=== PATIENT | female | born 1990 | race Caucasian/White ===

== ENCOUNTER 2016-08-25 14:45 | Observation (INO) | payer OTHER ==
[2016-08-19 18:04] VITALS: BP 115/58
[~2016-08-25 14:45] MED LIST: HYDR50CA PO; IBUP-1060 PO; NIFE10CA48 PO; ONDA8TAB12 PO; PNV1TABL25 PO
[2016-08-25] MEDS ORDERED: IV RINGERS,LACTATED 1000ML 1,000 ML IV SCH (17:21)
== END 2016-08-25 17:24 | disposition home or self-care (01) ==
LOC: 3 SO LND 14:45
PROVIDERS: ADMIT Obstetrics & Gynecology; ATTEND Obstetrics & Gynecology
DX: O62.9 Abnormality of forces of labor, unspecified (principal); O46.93 Antepartum hemorrhage, unspecified, third trimester; Z3A.35 35 weeks gestation of pregnancy
CPT/HCPCS: G0378; G0379

== ENCOUNTER 2016-09-07 20:16 | Emergency (ER) | payer OTHER ==
[~2016-09-07] VITALS: Ht 162.6 cm; Wt 73.0 kg
[2016-09-07] MEDS ORDERED: ACETAMINOPHEN 325 MG TABLET. PO ONE (21:00)
[2016-09-07] MEDS ORDERED: AMOX500C PO (21:15)
[2016-09-07] MEDS ORDERED: ERYT1OIN6 OP (21:15)
--- NOTE | 2016-09-07 21:15 | PHYS DOC ---
Past Medical History Past Medical History: No Pertinent History Additional Past Medical Histor: Ovarian Cyst Past Surgical History: No Surgical History Alcohol Use: None Drug Use: None Adult General Chief Complaint Chief Complaint: MULTIPLE COMPLAINTS HPI HPI Patient is a 26 year old female presents to the emergency department stating that she is 36-37 weeks . She is complaining of left lower and upper dental pain and discomfort. Just complaining of left ear pain and discomfort. She is also complaining of bilateral eye drainage is been yellow and white color. Patient denies any fever, chills or any nausea or vomiting. Review of Systems Review of Systems Constitutional: Denies fever or chills [] Eyes: Denies change in visual acuity, redness, or eye pain. Patient complaint of bilateral eye discharge and drainage HENT: Denies nasal congestion or sore throat. Complaint of left ear pain as well as left upper and lower dental pain and discomfort. Respiratory: Denies cough or shortness of breath [] Cardiovascular: No additional information not addressed in HPI [] GI: Denies abdominal pain, nausea, vomiting, bloody stools or diarrhea [] : Denies dysuria or hematuria [] Musculoskeletal: Denies back pain or joint pain [] Integument: Denies rash or skin lesions [] Neurologic: Denies headache, focal weakness or sensory changes [] Endocrine: Denies polyuria or polydipsia [] Current Medications Current Medications Current Medications Medications (Trade) Dose Ordered Sig/[facility] Start Time Stop Time Status Last Admin Dose Admin Acetaminophen (Tylenol) 650 mg 1X ONCE 09/07/16 21:00 09/07/16 21:01 DC 09/07/16 21:05 650 MG Allergies Allergies Allergies Coded Allergies Type Severity Reaction Last Updated Verified coconut oil Allergy Intermediate 03/30/15 Yes latex Allergy Intermediate 03/30/15 Yes Physical Exam Physical Exam Constitutional: Well developed, well nourished, no acute distress, non-toxic appearance. [] HENT: Normocephalic, atraumatic, bilateral external ears normal, oropharynx moist, no oral exudates, nose normal. Bilateral tympanic membranes appear to be normal. Patient with dental tenderness noted on the left and upper and lower area. The areas appear to be red and inflamed. No drainage or discharge noted from the area Eyes: PERRLA, EOMI, conjunctiva normal, no discharge. [] Neck: Normal range of motion, no tenderness, supple, no stridor. [] Cardiovascular:Heart rate regular rhythm, no murmur [] Lungs & Thorax: Bilateral breath sounds clear to auscultation [] Skin: Warm, dry, no erythema, no rash. [] Back: No tenderness Extremities: No tenderness, no cyanosis, no clubbing, ROM intact, no edema. [] Neurologic: Alert and oriented X 3, normal motor function, normal sensory function, no focal deficits noted. [] Psychologic: Affect normal, judgement normal, mood normal. [] Current Patient Data Vital Signs Vital Signs Date Time Temp Pulse Resp B/P (MAP) Pulse Ox O2 Delivery O2 Flow Rate FiO2 09/07/16 20:33 97.8 89 16 96 Room Air 97.8 EKG EKG [] Radiology/Procedures Radiology/Procedures [] Course & Med Decision Making Course & Med Decision Making Pertinent Labs and Imaging studies reviewed. (See chart for details) Patient is instructed to use Tylenol for pain and discomfort. She'll also be provided with amoxicillin. Also instructed patient to use eyedrops such as erythromycin to help with bilateral conjunctivitis. Recommended plenty of fluids. Patient was provided with signs and symptoms to return back to emergency department. Patient will be discharged home in stable condition. [] Dragon Disclaimer Dragon Disclaimer This electronic medical record was generated, in whole or in part, using a voice recognition dictation system. Departure Departure Impression: Primary Impression: Dental abscess Additional Impressions: Otalgia of left ear Conjunctivitis Disposition: 01 HOME, SELF-CARE Condition: STABLE Referrals: NO PCP (PCP) Patient Instructions: Bacterial Conjunctivitis, [id number], Dental Abscess, Otalgia-Brief Additional Instructions: You have been evaluated for your dental pain, left ear pain, and bilateral eye drainage and discharge. Your ear pain as secondary to your dental pain as this is radiation of pain. Tylenol for pain and discomfort. Antibiotics as prescribed. Eyedrops as prescribed for conjunctivitis. Follow-up to primary care physician/LEGAL BILLER within the next 3-5 days. Return back to emergency prior signs and symptoms of become worse. Scripts Erythromycin Base (Erythromycin) 1 Gm Oint...g. 1 CM OP 6XDAY for 7 Days, [facility] Prov: ROSELYN SALTERElizabeth Clemente QUALITATIVE RESEARCHER 09/07/16 Amoxicillin (AMOXICILLIN) 500 Mg Capsule 1 CAP PO QID, #40 CAP Prov: DIONNE SALTER APRN 09/07/16 Problem Qualifiers DIONNE SALTER APRN Sep 07, 2016 21:15
[2016-09-07 21:23] VITALS: BP 123/75
== END 2016-09-07 21:25 | disposition home or self-care (01) ==
LOC: ER 20:16
DX: O26.893 Other specified pregnancy related conditions, third trimester (principal); K04.7 Periapical abscess without sinus; H10.9 Unspecified conjunctivitis; H92.02 Otalgia, left ear; Z91.040 Latex allergy status; Z91.018 Allergy to other foods; Z3A.37 37 weeks gestation of pregnancy
CPT/HCPCS: 81025; 99283

== ENCOUNTER 2018-10-22 16:24 | Emergency (ER) | payer MEDICAID, OTHER ==
[~2018-10-22] VITALS: Ht 160 cm; Wt 75.7 kg
[~2018-10-22 16:24] MED LIST changes: +AMOX500C PO; +ERYT1OIN6 OP; +OXYC1TAB15 PO
[2018-10-22 16:35] VITALS: BP 125/73
--- NOTE | 2018-10-22 17:31 | PHYS DOC ---
Past Medical History Past Medical History: No Pertinent History Additional Past Medical Histor: Ovarian Cyst Past Surgical History: Tubal ligation Alcohol Use: None Drug Use: None Adult General Chief Complaint Chief Complaint: VAGINAL PROBLEM HPI HPI Patient is a 28 year old female who presents to the ER, accompanied by her , with complaints of vaginal pain for the last 2 years. Pt states at first she had pain with intercourse but lately she has vaginal pain all of the time. She denies any irregular vaginal discharge, bleeding, or odor. She denies any dysuria, hematuria, increased urinary frequency, or incontinence. She rates the pain a 5/10 on the pain scale, there are no alleviating factors. Pt states she is worried that something is wrong because after her last child , over 2 years ago, she was told to follow up with Dr. Mejia the next day and never went back to see him. Review of Systems Review of Systems Constitutional: Denies fever or chills [] HENT: Denies nasal congestion or sore throat [] Respiratory: Denies cough or shortness of breath [] Cardiovascular: No additional information not addressed in HPI [] GI: Denies abdominal pain, nausea, vomiting, bloody stools or diarrhea; reports chronic constipation [] : Denies dysuria or hematuria; see HPI] Musculoskeletal: Denies joint pain; reports chronic low back pain, denies any changes Integument: Denies rash or skin lesions [] Neurologic: Denies headache, focal weakness or sensory changes [] Complete systems were reviewed and found to be within normal limits, except as documented in this note. Allergies Allergies Allergies Coded Allergies Type Severity Reaction Last Updated Verified coconut oil Allergy Intermediate 03/30/15 Yes latex Allergy Intermediate 03/30/15 Yes Physical Exam Physical Exam Constitutional: Well developed, well nourished, no acute distress, non-toxic appearance. [] HENT: Normocephalic, atraumatic, bilateral external ears normal, nose normal. [] Eyes: conjunctiva normal, no discharge. [] Neck: Normal range of motion, no stridor. [] Cardiovascular:Heart rate regular rhythm, Lungs & Thorax: Respirations even and unlabored, no retractions, no respiratory distress Abdomen: Bowel sounds normal, soft, LLQ guarding, no rebound tenderness, no masses, no pulsatile masses. [] Skin: Warm, dry, no erythema, no rash. [] Back: No CVA tenderness. [] Extremities: No cyanosis, ROM intact, no edema. [] Neurologic: Alert and oriented X 3, no focal deficits noted. [] Psychologic: Affect normal, judgement normal, mood normal. [] Current Patient Data Vital Signs Vital Signs Date Time Temp Pulse Resp B/P (MAP) Pulse Ox O2 Delivery O2 Flow Rate FiO2 10/22/18 16:35 97.4 92 14 125/73 (90) 95 Room Air 97.4 EKG EKG [] Radiology/Procedures Radiology/Procedures PROCEDURE: TRANSVAGINAL Transvaginal pelvic ultrasound 10/22/2018 CLINICAL HISTORY: Chronic vaginal pain. Left pelvic tenderness. TECHNIQUE: A transvaginal pelvic ultrasound study was performed. Multiple images were obtained. FINDINGS: The uterus is within normal limits in size and echogenicity. It measures 9.7 x 4.9 x 4.5 cm in longitudinal, transverse, and AP dimensions. The endometrial echo complex measures 6 mm in thickness which is within normal limits. No focal abnormality of the uterus is seen. A 1.3 cm nabothian cyst is seen within the cervix. Both ovaries are within normal limits size and echogenicity. The right ovary measures 3.4 x 2.4 x 1.9 cm in size. The left ovary measures 2.2 x 2.8 x 1.7 cm in size. No adnexal mass is seen. Normal color-flow and pulse Doppler imaging to both ovaries is noted. No free fluid is seen. IMPRESSION: Negative study.[] Course & Med Decision Making Course & Med Decision Making Pertinent Labs and Imaging studies reviewed. (See chart for details) Discussed pt with Dr. Gonzales who recommends that patient follow up with Dr. Mejia concerning chronic vaginal pain. Ultrasound was negative for any acute findings. [id number] Mejia who recommends that this patient follow up in the office for further evaluation of chronic vaginal pain. Patient verbalized an understanding of home care, medications, follow-up, and return to ED instructions and was in agreement with the plan of care. [] Dragon Disclaimer Dragon Disclaimer This electronic medical record was generated, in whole or in part, using a voice recognition dictation system. Departure Departure Impression: Primary Impression: Vaginal pain Disposition: HOME, SELF-CARE Condition: STABLE Referrals: TOMASZ MEJIA Jr, MD Additional Instructions: Follow up with Dr. Mejia for further evaluation of your vaginal pain. The ultrasound today showed no acute findings. ISATU LE AUTOMOBILE WRECKER Oct 22, 2018 17:30
--- NOTE | 2018-10-22 19:03 | RAD ---
Transvaginal pelvic ultrasound 10/22/2018 CLINICAL HISTORY: Chronic vaginal pain. Left pelvic tenderness. TECHNIQUE: A transvaginal pelvic ultrasound study was performed. Multiple images were obtained. FINDINGS: The uterus is within normal limits in size and echogenicity. It measures 9.7 x 4.9 x 4.5 cm in longitudinal, transverse, and AP dimensions. The endometrial echo complex measures 6 mm in thickness which is within normal limits. No focal abnormality of the uterus is seen. A 1.3 cm nabothian cyst is seen within the cervix. Both ovaries are within normal limits size and echogenicity. The right ovary measures 3.4 x 2.4 x 1.9 cm in size. The left ovary measures 2.2 x 2.8 x 1.7 cm in size. No adnexal mass is seen. Normal color-flow and pulse Doppler imaging to both ovaries is noted. No free fluid is seen. IMPRESSION: Negative study. Electronically signed by: Zhao Echevarria MD (10/22/2018 7:00 PM) [facility]
== END 2018-10-22 19:32 | disposition home or self-care (01) ==
LOC: ER 16:24
DX: R10.2 Pelvic and perineal pain (principal); G89.29 Other chronic pain; Z98.51 Tubal ligation status; Z91.040 Latex allergy status; Z88.8 Allergy status to other drugs, medicaments and biological substances
CPT/HCPCS: 76830; 99284

== ENCOUNTER → 2020-11-07 | Outpatient (CLI) | payer MEDICAID ==
--- NOTE | 2020-11-07 13:43 | RAD ---
EXAM: Pelvic sonogram. HISTORY: Right ovarian cyst. TECHNIQUE: Transabdominal and transvaginal sonographic imaging of the pelvis was performed. COMPARISON: 10/22/2018. FINDINGS: The uterus measures 8.2 x 5.3 x 4.1 cm. The endometrial stripe measures 4.3 mm in thickness . The ovaries are normal in size and demonstrate normal blood flow. There are small bilateral ovarian follicles. There is trace pelvic free fluid. IMPRESSION: 1. No evidence of an ovarian cyst. There are physiologic ovarian follicles. 2. Trace pelvic free fluid, within physiologic limits. Electronically signed by: Ladi Casas MD (11/07/2020 1:40 PM) [id number]
== END ==
LOC: US 12:05
PROVIDERS: ATTEND Obstetrics & Gynecology
DX: N83.201 Unspecified ovarian cyst, right side (principal)
CPT/HCPCS: 76830; 76856

== ENCOUNTER → 2021-03-09 | Outpatient (CLI) | payer MEDICAID ==
[~2021-03-09] MED LIST changes: +IOHEXOL 300 MG/ML 50 ML VIAL. INT UTERIN ONE
[2021-03-09 12:23] LABS: PREG TEST PT QUAL NEGATIVE (NEG)
== END ==
LOC: RAD 11:23
PROVIDERS: ATTEND Obstetrics & Gynecology
DX: N93.9 Abnormal uterine and vaginal bleeding, unspecified (principal)
CPT/HCPCS: 84703

== ENCOUNTER → 2021-04-28 | Outpatient (CLI) | payer MEDICAID ==
[~2021-04-28] MED LIST changes: +CONTRAST GIVEN. MC PRN; +IOHEXOL 300 MG/ML 100ML VIAL. INT CAT ONE; -IOHEXOL 300 MG/ML 50 ML VIAL. INT UTERIN ONE
--- NOTE | 2021-04-28 15:34 | RAD ---
EXAM: Hysterosalpingogram. HISTORY: Displaced fallopian tube closure device. TECHNIQUE: The risks of the procedure were discussed with the patient and written and verbal consent was obtained. A negative serum (chest was obtained. A timeout was performed. A vaginal speculum was i nserted and the cervix was identified and cleansed with Betadine. A balloon tip catheter was advanced into the uterine cavity and the balloon was inflated. Fluoroscopic imaging of the pelvis was perform ed with the patient in neutral prone and bilateral oblique positions. A total of 8 fluoroscopic image s were obtained for a fluoroscopy time of 1.4 minutes. COMPARISON: Pelvic sonogram dated 11/07/2020. FINDINGS: The raw hide trimmer image of the pelvis demonstrates a right-sided fallopian tube closure device over lying expected position. The left clipping tube closure device was previously identified within the l eft upper abdomen. The images obtained during the administration of contrast demonstrate a normal igiugig rine configuration. There is contrast opacification of the proximal aspects of both fallopian tubes. There is suggestion of a filling defect within the left uterine horn. However, this is not seen on al l images and is likely artifactual. There is no spillage of contrast into the pelvis. IMPRESSION: 1. Displaced left fallopian tube closure device, excluded from the [id number]. There is a right fa llopian tube closure device overlying expected position. 2. Contrast opacification of the proximal aspects of both fallopian tubes. The distal aspects of the fallopian tubes are not opacified and there is no spillage of contrast into the peritoneal cavity. Th is favors that both tubes are occluded distally. Electronically signed by: Ladi Casas MD (04/28/2021 3:31 PM) [id number]
== END | disposition home or self-care (01) ==
LOC: RAD 13:24
PROVIDERS: ATTEND Obstetrics & Gynecology
DX: N83.4 Prolapse and hernia of ovary and fallopian tube (principal); F17.210 Nicotine dependence, cigarettes, uncomplicated; Z79.899 Other long term (current) drug therapy; Z98.890 Other specified postprocedural states; Z91.040 Latex allergy status; Z88.8 Allergy status to other drugs, medicaments and biological substances
CPT/HCPCS: 36415; 58340; 74740; 84702; Q9967